=== PATIENT | female | born 1980 | race Two or more races ===

== ENCOUNTER → 2016-11-19 | Emergency (ER) | payer MEDICAID ==
[~2016-11-19] VITALS: Ht 165.1 cm; Wt 124.7 kg
[~2016-11-19] MED LIST: AMLO10TA2 PO; BACL20TA PO; HYDR-4076 PO; IBUP200C76 PO; IBUPROFEN 600 MG TABLET ONE; IBUPROFEN 600 MG TABLET PO ONE; ONDANSETRON ODT 4 MG TAB.RAPDIS ONE; ONDANSETRON ODT 4 MG TAB.RAPDIS SL ONE; TOPI25TA49 PO; ZOLP10TA6 PO
--- NOTE | 2016-11-19 11:50 | NUR ---
BIB [facility] and [employer] from private residence post Ambien overdose, self inflicted abrasions/scratches to left hand/wrist,chest and bilat thighs post suicide attempt per pt. Pt arrives a/o x3, speech slightly slurred but pt is able to answer all questions appropriately. Pt calm, cooperative and ambulatory upon arrival. Suicide precautions implemented, solutions executive security at bedside for 1:1 observation for safety.
[2016-11-19 12:11] LABS: *BILIRUBIN,URIN NEGATIVE (NEGATIVE); *BLOOD, URINE NEGATIVE (NEGATIVE); *CLARITY,URINE CLEAR (CLEAR); *COLOR,URINE YELLOW (YELLOW); *KETONES,URINE NEGATIVE (NEGATIVE); *PROTEIN,URINE NEGATIVE (NEGATIVE); *UROBILINOGEN,URINE 0.2 E.U./dl (NORMAL); LEUKOCYTE ESTERASE ,URINE TRACE (NEGATIVE); NITRITE, URINE NEGATIVE (NEGATIVE); UGLUCOSE NEGATIVE (NEGATIVE)
[2016-11-19 12:20] LABS: BASOPHILS # (AUTO) 0.1 K/uL (0.0-8.0); BASOPHILS % (AUTO) 0.9 % (0.0-2.0); EOSINOPHILS # (AUTO) 0.1 K/uL (0.0-0.7); EOSINOPHILS % (AUTO) 1.6 % (0.0-7.0); HEMATOCRIT 41.1 % (37-47); HEMOGLOBIN 13.5 G/DL (12.0-16.0); LYMPHOCYTES # (AUTO) 2.6 K/UL (0.8-4.8); LYMPHOCYTES % (AUTO) 28.2 % (20.5-51.5); MEAN CORPUSCULAR HEMOGLOBIN 28.5 UUG (27.0-31.0); MEAN CORPUSCULAR HGB CONC 33 g/dL (32.0-37.0); MONOCYTES # (AUTO) 0.9 K/UL (0.1-1.30); MONOCYTES % (AUTO) 9.3 % (0.0-11.0); NEUTROPHILS # (AUTO) 5.4 K/UL (1.8-8.9); PLATELET COUNT (AUTO) 305 K/UL (150-450); RED BLOOD CELL COUNT(AUTO) 4.72 MIL/UL (4.2-5.4); WHITE BLOOD COUNT (AUTO) 9.1 K/UL (4.0-11.2)
[2016-11-19 12:29] LABS: CARBON DIOXIDE 27 mmol/L (21-32); CHLORIDE 107 mmol/L (98-107); CREATININE 0.8 mg/dL (0.6-1.3); GLUCOSE 106 mg/dL (74-106); POTASSIUM 3.8 mmol/L (3.5-5.1); UREA NITROGEN, BLOOD 11 mg/dL (7-18)
[2016-11-19 12:34] LABS: ALANINE AMINOTRANSFERASE 120 U/L (14-59); ALKALINE PHOSPHATASE 93 U/L (50-136); ASPARTATE AMINOTRANSFERASE 69 U/L (15-37); BILIRUBIN,DIRECT 0.1 mg/dL (0.0-0.2); BILIRUBIN,TOTAL 0.5 mg/dL (0.2-1.0); TOTAL PROTEIN, SERUM 7.5 g/dL (6.4-8.2)
[2016-11-19 12:41] LABS: BACTERIA,URINE FEW /HPF (NONE SEEN); RBC,URINE 0-3 /HPF (0-3); SQUAMOUS EPITHELIAL CELL,UR MANY /HPF (NONE SEEN)
[2016-11-19 12:49] LABS: ACETAMINOPHEN < 2.0 ug/mL (10-30)
[2016-11-19 13:08] LABS: ETHANOL < 3 MG/DL (0-0)
[2016-11-19 13:10] LABS: *AMPHETAMINE, URINE NEGATIVE (NEGATIVE); *BARBITURATE, URINE NEGATIVE (NEGATIVE); *CANNABINOID, URINE NEGATIVE (NEGATIVE); *COCCAINE, URINE NEGATIVE (NEGATIVE); *OPIATE, URINE NEGATIVE (NEGATIVE); *PHENCYCLIDINE SCREEN,URINE NEGATIVE (NEGATIVE)
--- NOTE | 2016-11-19 13:22 | NUR ---
Pt resting in [facility] ramos noted. telephone lineworker remains at bedside for 1:1 observation.
--- NOTE | 2016-11-19 15:30 | NUR ---
Pt denies nausea and states she is hungry. Pt was given jello which she tolerated well then a sandwich and juice which she also tolerated well.
--- NOTE | 2016-11-19 16:26 | NUR ---
Pt is sleeping with no s/s of distress noted.
--- NOTE | 2016-11-19 16:48 | NUR ---
Fisher Spear at bedside for blood re-draw.
--- NOTE | 2016-11-19 17:46 | NUR ---
Pt ambulatory to restroom with steady gait, remains calm and cooperative. Pending medical clearance.
[2016-11-19 17:48] LABS: ALANINE AMINOTRANSFERASE 124 U/L (14-59); ALKALINE PHOSPHATASE 87 U/L (50-136); ASPARTATE AMINOTRANSFERASE 69 U/L (15-37); BILIRUBIN,DIRECT 0.2 mg/dL (0.0-0.2); BILIRUBIN,TOTAL 0.5 mg/dL (0.2-1.0); TOTAL PROTEIN, SERUM 7.2 g/dL (6.4-8.2)
[2016-11-19 17:59] LABS: ACETAMINOPHEN < 2.0 ug/mL (10-30)
--- NOTE | 2016-11-19 18:02 | NUR ---
Per Dr Belcher pt is medically clear. Called Owen Purcell for psych eval, eta 15 mins.
--- NOTE | 2016-11-19 18:22 | NUR ---
Owen Purcell here for eval.
--- NOTE | 2016-11-19 19:20 | NUR ---
MARY ALICE REPORTED FROM DAYSHIFT NURSE, PT IS ALERT, ORIENTED X 3, NO RESP DISTRESS NOTED OR REPORTED UPON ASSESSMENT...PT EATING TUNA SANDWICH AND DRINKING JUICE, PT DENIES PAIN... WILL CONTINUE TO MONITOR PT FOR SAFETY, PAIN AND COMFORT...
--- NOTE | 2016-11-19 20:31 | NUR ---
RECEIVED CALL FROM KATHERINE FROM [facility], REQUESTING ADDITIONAL INFO ON PT, REVIEWED BEHAVIOR, HX, PTS PLAN, HOLD STATUS (VOLUTARY), MEDICATIONS AND LABS, CALLER STATES WILL REVIEW WITH HOUSE SUP AND WILL C/B TO INFORM IF FACILITY WILL BE ABLE TO ACCEPT...
--- NOTE | 2016-11-19 21:45 | NUR ---
RECEIVED CALL FROM MOLLY WITH [facility] THEY WILL BE ADMITTING PT... ADMITTING MD WILL BE YUSUF, ADVISED TO GIVE REPORT TO UNIT ....
--- NOTE | 2016-11-19 23:05 | NUR ---
PT SLEEPING IN BED, AROUSABLE TO NAME, PT C/O HEADACHE, AND LOWER BACK PAIN, PER ERMD GAVE 600MG OF MOTRIN... WILL CONTINUE TO MONITOR FOR SAFETY, PAIN AND COMFORT...
--- NOTE | 2016-11-20 00:40 | NUR ---
AMBULANCE HERE TO TRANSFER PT, REPORT GIVEN, PT IS ALERT, ORIENTED X 3, NO RESP DISTRESS NOTED OR REPORTED PRIOR TO TRANSFER, BELONGINGS AT SIDE...
--- NOTE | 2016-11-20 01:06 | NUR ---
Patient Tranfers to outside Facility Physician: YUSUF Location: [facility]
--- NOTE | 2016-11-20 02:15 | NUR ---
UNABLE TO PROPERLY DEPART PT FROM [facility] DUE TO POSSIBLE PROGRAM MALFUNCTION...
--- NOTE | 2016-11-20 03:40 | NUR ---
RECEIVED CALL FROM DAISHA Silva/ [facility] ADMITTING DEPT, STATING THEY ARE GOING TO SEND PT BACK, PT IS REQUIRING A CPAP MACHINE FOR SLEEP, DAISHA STATES THEY ARE A FREE STANDING PSYCH FACILITY WITH NO MEDICAL INTERVENTIONS. CONTACTED SARTHAK WHO STATES NEW PLACEMENT WILL NEED TO FOUND... DAISHA @ [facility] STATES TO CONTACT [facility] THEY HAVE PSYCH AND MEDICAL... DAISHA STATES [place] BE [place] AR[place] [id number]....
== END | disposition home or self-care (01) ==
LOC: ER 11:50
DX: T42.6X2A Poisoning by other antiepileptic and sedative-hypnotic drugs, intentional self-harm, initial encounter (principal); F32.9 Major depressive disorder, single episode, unspecified; I10 Essential (primary) hypertension; Y92.89 Other specified places as the place of occurrence of the external cause
CPT/HCPCS: 36415; 80048; 80076 ×2; 80307; 81001; 84703; 85025; 93005; 99285; A4663; G0480 ×3; G0481 ×2; Q0162